=== PATIENT | female | born 1945 | race Caucasian/White ===

== ENCOUNTER 2016-12-31 10:45 | Emergency (ER) | payer OTHER, MEDICARE ==
--- NOTE | 2016-12-31 11:34 | EDPHY ---
H & P Time Seen by Provider: 12/31/16 10:57 HPI/ROS: CHIEF COMPLAINT: Left knee pain HISTORY OF PRESENT ILLNESS: 71-year-old female presents to the emergency department by private vehicle complaining of pain in her left knee. The patient states 10 days ago she was having some pain in her left knee. She saw her primary care provider and was referred to orthopedic surgeon. 2 days ago she saw a physician assistant teacher at [facility] and had negative x- rays. She states today she was walking up 1 step and her left knee buckled and gave out on her. She thinks that it hyperextended. She is now having pain especially with movement. She is also having some pain mildly in her left hip. She denies any other known trauma or injury. No calf pain or swelling. She is unable to bear weight. It took her and their other neighbor to get her into the car to take her to the hospital. She denies chest pain or difficulty breathing. Denies abdominal pain. REVIEW OF SYSTEMS: Constitutional: No fever, no chills. Eyes: No double or blurry vision. ENT: No sore throat. Respiratory: No cough, no shortness of breath. Cardiac: No chest pain. Gastrointestinal: No abdominal pain, vomiting or diarrhea. Genitourinary: No dysuria. Musculoskeletal: No neck or back pain. Skin: No rashes. Neurological: No headache. Past Medical/Surgical History: sleep apnea Social History: and lives in [place] Smoking Status: Never smoked Physical Exam: General Appearance: Alert, no distress. Eyes: Pupils equal and round. Extraocular motions are all intact. ENT: Mouth: Mucous membranes moist. Respiratory: No wheezing, rhonchi, or rales, lungs are clear to auscultation. Cardiovascular: Regular rate and rhythm. Gastrointestinal: Abdomen is soft and nontender, no masses, no rebound or guarding, bowel sounds normal. Neurological: Alert and oriented x 3, cranial nerves II through XII grossly intact Skin: Warm and dry, no rashes. Musculoskeletal: Nontender to palpate along the cervical, thoracic or lumbar spine. Neck is supple. Extremities: Full range of motion and no peripheral edema. No effusion. She has limited flexion. She is able to fully extend her left knee however this does cause pain. She has some mild pain with palpation in the medial and lateral joint line. No obvious ligament instability. She has some mild pain with valgus stress to the left knee. Full range of motion of the left ankle. She has pain with external rotation of her left hip however this causes pain in her left knee not in the hip. Nontender to palpate along her lumbar spine. She has some mild pain with palpation over the left SI joint. Her gait is not tested. Psychiatric: Patient is oriented X 3, there is no agitation. Constitutional: Initial Vital Signs Temperature (C) 36.5 C 12/31/16 10:50 Heart Rate 61 12/31/16 10:50 Respiratory Rate 16 12/31/16 10:50 Blood Pressure 156/70 H 12/31/16 10:50 O2 Sat (%) 95 12/31/16 10:50 O2 Delivery Mode Room Air Allergies/Adverse Reactions: clotrimazole [From Fungoid] Allergy (Severe, Verified 12/31/16 10:49) Diarrhea miconazole nitrate [From Fungoid] Allergy (Severe, Verified 12/31/16 10:49) Diarrhea monosodium glutamate [Monosodium Glutamate] Allergy (Severe, Verified 12/31/16 10:49) Diarrhea Home Medications: Medication Instructions Recorded predniSONE 12/31/16 Medical Decision Making - Diagnostics Imaging Results: Imaging Impressions Lower Extremity MRI 12/31/16 11:24 Impression: 1. Tear and attenuation in the posterior horn medial meniscus at the meniscal root which may be completely avulsed. Grade 1 articular cartilage disease, medial compartment. 2. Degenerative signal lateral meniscus without definitive tear. Grade 1 to early grade 2 articular cartilage disease lateral compartment. 3. Grade 3 chondromalacia patellofemoral compartment. Results called and discussed with Christine Ruth PA-C, 12/31/2016, 1248 hours. Imaging: Discussed imaging studies w/ um specialist Radiologist ED Course/Re-evaluation: 71-year-old female presents with left knee pain. The patient has already seen a primary care provider and had negative outpatient x-rays with orthopedic doctor. She states today she hyperextended her knee and now she is unable to bear weight. I feel that an MRI of her left knee is indicated because the patient cannot bear weight and the does not think that she is able to go home. They have stairs in her home. He is very concerned how she is going to get around. I do not think MRI of the lumbar spine is indicated. Her pain is clearly worse with movement of the left knee. She has normal neurologic examination. I doubt this patient has a DVT. She has no calf pain or swelling. She has full range of motion of her ankles. She has reproducible pain with movement of the knee and therefore I did not think that a lumbar spine MRI was indicated. MRI of the patient's left knee reveals nearly complete tear of the left medial meniscus. Grade 3 chondromalacia is also noted. Patient was placed in straight leg knee immobilizer and was able to ambulate with the brace on. The felt comfortable taking her home. She was given orthopedic follow-up information. She states that she will likely follow up with the [facility] since she saw them in clinic this week. X-rays were not repeated since she just had these as an outpatient 2 days ago with the orthopedic doctor. Differential Diagnosis: Including but not limited to fracture, dislocation, contusion, sprain - Data Points Medications Given: Discontinued Medications Ibuprofen (Motrin) 600 mg PO EDNOW ONE Stop: 12/31/16 13:50 Last Admin: 12/31/16 13:53 Dose: 600 mg Oxycodone/Acetaminophen (Percocet 5/325) 1 tab PO EDNOW ONE Stop: 12/31/16 13:50 Last Admin: 12/31/16 13:53 Dose: 1 tab Departure - Departure Disposition: Home, Routine, Self-Care Clinical Impression: Acute medial meniscus tear of left knee Qualifiers: Encounter type: initial encounter Qualified Code(s): S83.242A - Other tear of medial meniscus, current injury, left knee, initial encounter Condition: Good Instructions: Knee Sprain (ED), Meniscus Tear (ED) Additional Instructions: Straight leg knee immobilizer, weightbear as tolerated. Ibuprofen 600 mg every 8 hours as needed for pain. Follow up with orthopedic surgeon next week to recheck. Return to the emergency department if you develop numbness or tingling in her toes, calf pain or swelling, or if you feel worse in any way. Referrals: Ronda Crenshaw MD [Primary Care Provider] - As per Instructions
[2016-12-31] MEDS ORDERED: IBUPROFEN 600 MG TAB PO ONE (13:49)
[2016-12-31] MEDS ORDERED: OXYCODONE/APAP 5/325 TAB PO ONE (13:49)
[2016-12-31 14:21] VITALS: BP 132/58; PULSE 58; RESP 14; TEMP 98.2; O2SAT 96
== END 2016-12-31 14:05 | disposition home or self-care (01) ==
DX: S83.242A Other tear of medial meniscus, current injury, left knee, initial encounter (principal); X58.XXXA Exposure to other specified factors, initial encounter
CPT/HCPCS: 73721; 99284; L1830

== ENCOUNTER → 2017-02-28 | Outpatient (CLI) | payer OTHER, MEDICARE | LOC: FIMAGING 14:21 | PROVIDERS: ATTEND Family Medicine | DX: Z12.31 Encounter for screening mammogram for malignant neoplasm of breast (principal) | CPT/HCPCS: G0202 ==

== ENCOUNTER 2017-05-15 10:49 | Emergency (ER) | payer OTHER, MEDICARE ==
[2017-05-15 11:02] VITALS: RESP 18; O2SAT 96
--- NOTE | 2017-05-15 13:05 | EDPHY ---
H & P Smoking Status: Never smoked Time Seen by Provider: 05/15/17 12:45 HPI/ROS: Chief complaint: Left leg swelling History of present illness: This is a 71-year-old female who presents to the emergency department for left leg swelling. She reports the onset of symptoms over the last day. Patient is concerned because in late March she had a meniscus surgery. She has used a brace since then. She has been doing well since the surgery until yesterday when the swelling began. [place] She denies actual pain. She denies abnormal coolness or paresthesias in the leg. No recent trauma. No other associated signs or symptoms reported. (Noah Sadler) Physical Exam: General: Alert, nontoxic Skin: No erythema or edema of the left leg. No abnormal coolness on palpation. Musculoskeletal: She is moving the left lower extremity well in all joints all bansal. Vascular: DP and PT pulses 2+. Neurologic: Sensation reported as intact throughout the left leg. (Noah Sadler) Constitutional: Initial Vital Signs Temperature (C) 36.7 C 05/15/17 11:00 Heart Rate 70 05/15/17 11:00 Respiratory Rate 18 05/15/17 11:00 Blood Pressure 146/60 H 05/15/17 11:00 O2 Sat (%) 96 05/15/17 11:00 O2 Delivery Mode Room Air Allergies/Adverse Reactions: clotrimazole [From Fungoid] Allergy (Severe, Verified 05/15/17 10:58) Diarrhea miconazole nitrate [From Fungoid] Allergy (Severe, Verified 05/15/17 10:58) Diarrhea monosodium glutamate [Monosodium Glutamate] Allergy (Severe, Verified 05/15/17 10:58) Diarrhea Home Medications: Medication Instructions Recorded Meloxicam 05/15/17 MDM/Departure - MDM Imaging: Discussed imaging studies w/ manager call Radiologist - MDM ED Course/Re-evaluation: Patient seen under the supervision of my secondary supervising physician Dr. Gem Nash. Patient presents to the emergency department for left leg swelling. On my evaluation her physical exam is benign without significant erythema or edema. The leg appears neurovascularly intact. Ultrasound is negative for thrombus. Patient will be discharged home. Home care is discussed. She is asked to follow up with her primary care doctor for recheck this week. Strict return precautions are given. The patient voiced understanding and agreement with plan. (Noah Sadler) The patient was evaluated and managed by the physician laboratory chemical assistant. I have reviewed this chart and I agree with the findings and plan of care as documented , as indicated by my signature. I am the secondary supervising physician. ( Gem Nash) Differential Diagnosis: Included but not limited to dependent edema, thromboembolic disease, infection ( Noah Sadler) - Depart Disposition: Home, Routine, Self-Care Clinical Impression: Left leg swelling Condition: Good Instructions: Leg Edema (ED) Additional Instructions: Follow-up with your primary care doctor in 1-2 days for recheck If symptoms worsen or new symptoms develop return to the emergency room for recheck Referrals: Ronda Crenshaw MD [Primary Care Provider] - As per Instructions
[2017-05-15 13:23] VITALS: BP 132/85; PULSE 69; TEMP 98.4
== END 2017-05-15 13:21 | disposition home or self-care (01) ==
DX: R22.42 Localized swelling, mass and lump, left lower limb (principal)

== ENCOUNTER → 2018-02-04 | Outpatient (CLI) | payer OTHER, MEDICARE | LOC: FIMAGING 12:51 | PROVIDERS: ATTEND Neurological Surgery | DX: M51.36 Other intervertebral disc degeneration, lumbar region (principal); M43.16 Spondylolisthesis, lumbar region; M43.17 Spondylolisthesis, lumbosacral region; M51.26 Other intervertebral disc displacement, lumbar region ==

== ENCOUNTER → 2018-03-27 | Outpatient (CLI) | payer OTHER, MEDICARE | LOC: FIMAGING 14:35 | PROVIDERS: ATTEND Family Medicine | DX: Z12.31 Encounter for screening mammogram for malignant neoplasm of breast (principal) ==

== ENCOUNTER → 2018-06-05 | Outpatient (CLI) | payer OTHER, MEDICARE | LOC: FIMAGING 11:29 | PROVIDERS: ATTEND Family Medicine | DX: M51.34 Other intervertebral disc degeneration, thoracic region (principal) | CPT/HCPCS: 82607-90 ==

== ENCOUNTER → 2018-07-20 | Outpatient (CLI) | payer OTHER, MEDICARE ==
[~2018-07-20] MED LIST: GADOBUTROL 10 ML VIAL IVP ONE
== END ==
LOC: FIMAGING 12:28
PROVIDERS: ATTEND Family Medicine
DX: Z13.820 Encounter for screening for osteoporosis (principal); M85.89 Other specified disorders of bone density and structure, multiple sites; G31.84 Mild cognitive impairment of uncertain or unknown etiology; G43.909 Migraine, unspecified, not intractable, without status migrainosus; R05 Cough; R42 Dizziness and giddiness; R63.5 Abnormal weight gain; Z78.0 Asymptomatic menopausal state
CPT/HCPCS: 70553; 77080; A9585